=== PATIENT | female | born 1990 | race Caucasian/White ===

== ENCOUNTER → 2017-03-05 16:28 | Observation (INO) ==
[2017-03-05 14:13] LABS: Basophils % 0.2 %; Eosinophils % 0.1 %; Hematocrit 36.9 % (35.3-44.9); Hemoglobin 12.4 g/dL (11.5-15.4); Lymphocytes # 1.3 K/mcL (0.6-4.6); Lymphocytes % 14.1 %; Mean Corpuscular HGB Conc 33.6 g/dL (31.6-35.5); Mean Corpuscular Hemoglobin 29.5 pg (28.0-33.3); Mean Corpuscular Volume 87.6 fL (83.0-100.0); Mean Platelet Volume 11.5 fL (9.4-12.4); Monocytes # 0.4 K/mcL (0.0-1.3); Monocytes % 4.1 %; Neutrophils # 7.6 K/mcL (1.6-8.9); Nucleated Red Blood Cells 0.3 /100 WBC (0); Platelet Count 171 K/mcL (140-400); Red Blood Count 4.21 M/mcL (3.82-4.97); Red Cell Distribution Width 13.2 % (11.5-14.5); Segmented Neutrophils % 80.5 %
[2017-03-05 14:18] LABS: Amphetamine Screen,Urine Negative ng/mL (Cutoff=1000); Barbiturate Screen,Urine Negative ng/mL (Cutoff=200); Benzodiazepines Screen,Urine Negative ng/mL (Cutoff=200); Cannabinoid Screen,Urine Negative ng/mL (Cutoff = 50); Cocaine Screen,Urine Negative ng/mL (Cutoff= 300); Opiate Screen,Urine Negative ng/mL (Cutoff=300); Phencyclidine Screen,Urine Negative ng/mL (Cutoff=25)
[2017-03-05 14:26] LABS: Alanine Aminotransferase 14 Units/L (7-52); Aspartate Amino Transferase 18 Units/L (13-39); BUN/Creatinine Ratio 15 (6-26); Blood Urea Nitrogen 9 mg/dL (6-20); Lactate Dehydrogenase 152 Units/L (140-271); Uric Acid 5.1 mg/dL (2.3-7.6); eGFR For African Americans > 60 (> 60); eGFR For Non-African Americans > 60 (> 60)
[2017-03-05 14:48] LABS: Protein/Creatinine Ratio,Urine 0.7 mg/mg (0.00-0.20)
--- NOTE | 2017-03-05 15:21 | OB/GYN Progress Note ---
Date of Encounter: 03/05/17 Time of Encounter: 15:16 - Assessment and Plan (1) PIH ( induced hypertension) Current Visit: Yes Status: Acute BP remains elevated: 160-170's/100-110's Mild edema. Denies other symptoms Monitoring - baseline 140 with variability and accels - reactive PIH labs negative, CBC within normal limits Urine prot/creat ratio elevated at 0.[address] [facility] [address] Wolf accepted transfer for further management at 30 weeks gestation - MFM recommended hydralazine and magnesium 6 gram bolus and then 2 gram/hour - After getting off the phone, the patient's HR had increased to 99 - Labetalol will be given in place of hydralazine due to borderline tachycardia POC discussed with Dr. Rush and he is in agreement with the plan Qualifiers: Trimester: third trimester Qualified Code(s): O13.3 - Gestational [ -induced] hypertension without significant proteinuria, third trimester (2) 30 weeks gestation of Current Visit: Yes Status: Acute Subjective - Subjective Principal diagnosis: Hypertension Interval history: Pt is a 27 year old female at 30w5d presenting to L&D from the office for elevated blood pressure. BP in the office today was 155/123 and 150/110. She has a history of pre-eclampsia with her previous . She reports some mild edema. Denies headaches, vision changes, or abdominal pain. She reports good movement. Denies contractions, loss of fluid, vaginal bleeding, or vaginal discharge. She received her second dose of betamethasone this morning. A 24 hour urine sample had been collected today, but not resulted yet. Other complications are IUGR (AC<10%, vtx, posterior placenta, EFW 2lbs, 13oz (21%), BPP 8/8, NARDA 18cm) and suspected Gestational DM (failed 1hr OGTT at 175, has not obtained 3 hr yet). Antepartum ROS: new complaints, movement normal, no loss of fluid, no vaginal bleeding, no contractions Objective - Vital Signs Vital Signs: Intake and Output 03/04/17 03/05/17 03/05/17 23:59 07:59 15:59 Other: Weight 115.666 kg Patient Weight 03/05/17 23:59 Weight 115.666 kg - Exam FHR: auscultation normal, category 1 FHR comments: FHT: baseline 140 with variability and accels Auscultation: bilateral: normal Abdomen: Present: normal appearance, soft, gravid Uterus: Present: normal, firm Comments: HR irregular and borderline tachy - Labs Labs: Abnormal lab results Nucleated RBCs/100 WBC 0.3 /100 WBC (0) H 03/05/17 13:40 Protein/Creatinin Ratio 0.70 mg/mg (0.00-0.20) H 03/05/17 13:40 Attestation Statement - Attestation Attestation: I examined this patient and my medical decision-making was reviewed with the Resident Physician. I agree with the documented findings, disposition and treatment plan as described. Agata Gold CNM
[~2017-03-05 16:28] MED LIST: *HR* Labetalol 20 MG/4 ML SYRINGE IVP ONE; Famotidine 20 MG TABLET PO ONE; MAGNESIUM SULFATE 6 GM/150 ML IVPB STA; MAGNESIUM SULFATE IV STA; Ringers Solution, Lactated 1,000 ML ONE
== END | disposition other institution (70) ==
LOC: 1NENULAB
PROVIDERS: ADMIT Student in an Organized Health Care Education/Training Program; ATTEND Student in an Organized Health Care Education/Training Program